=== PATIENT | male | born 1965 | race American Indian/Alaskan Native ===

== ENCOUNTER 2017-12-14 09:05 | Outpatient (CLI) | payer OTHER ==
--- NOTE | 2017-12-14 10:22 | XRay Report ---
ROUTINE CHEST, TWO VIEWS: HISTORY: Hypertension. The trachea, heart, mediastinal contour, lung clemons and bony thorax are unremarkable. IMPRESSION: Unremarkable chest x-ray.
--- NOTE | 2017-12-14 10:22 | XRay Report ---
LEFT SHOULDER: History: Pain. Routine views demonstrate normal bony and soft tissue structures with normal joint alignment of the shoulder. IMPRESSION: Left shoulder within normal limits.
== END 2017-12-14 09:06 | disposition home or self-care (01) ==
LOC: CARD 09:05
PROVIDERS: ATTEND Internal Medicine
DX: I10 Essential (primary) hypertension (principal); M25.512 Pain in left shoulder
CPT/HCPCS: 71046; 93005; 93010

== ENCOUNTER 2019-11-20 09:59 | Observation (INO) | payer BC ==
[2019-11-20 10:38] LABS: Hemoglobin 14.1 gm/dl (11.8-15.2); Mean Corpuscular HGB Conc 34 % (32-34); Mean Corpuscular Volume 85 fl (84-94); Platelet Count 239 K/mm3 (140-440); Red Blood Count 4.95 M/mm3 (3.65-5.03); Red Cell Distribution Width 13.1 % (13.2-15.2)
[2019-11-20 10:56] LABS: Alanine Aminotransferase 32 units/L (7-56); Albumin 4.3 g/dL (3.9-5); BUN/Creatinine Ratio 15; Blood Urea Nitrogen 15 mg/dL (9-20); Calcium 9.7 mg/dL (8.4-10.2); Hemolysis Index 12
[2019-11-20 11:34] LABS: Band Neutrophils # (Manual) 0.3 K/mm3; Basophils % (Manual) 0 % (0.0-1.8); Eosinophils % (Manual) 0 % (0.0-4.3); Total Cells Counted 100
[2019-11-20 11:35] LABS: Platelet Clumps Rare; Platelet Estimate Consistent w Auto; RBC Morphology Normal
[2019-11-20] MEDS ORDERED: SODIUM CHLORIDE 0.9% 1000 ML 1,000 ML IV ONE (11:43)
[2019-11-20] MEDS ORDERED: KETOROLAC 30 MG/1 ML INJ IV ONE (11:43)
[2019-11-20] MEDS ORDERED: MORPHINE 4 MG/1 ML INJ IV ONE (11:43)
[2019-11-20] MEDS ORDERED: ONDANSETRON 4 MG/2 ML INJ IV ONE (11:43)
--- NOTE | 2019-11-20 11:46 | Emergency Department Report ---
ED Abdominal Pain HPI - General Chief Complaint: Abdominal Pain Stated Complaint: ABD PAIN Time Seen by Provider: 11/20/19 11:39 Source: patient Mode of arrival: Wheelchair Limitations: No Limitations - History of Present Illness Initial Comments: 54-year male with past medical history hypertension no previous dental surgeries presents the hospital planing of right lower quadrant pain since 4:30 AM. Pain is sharp, cramping, intermittent rated 8-9/10 intensity. Pain is worse with palpation. Positive nausea with one episode of self-induced vomiting. Patient denies diarrhea, hematemesis, melena, hematochezia, dysuria, difficulty urinating, increased urinary frequency, or flank pain. - Related Data Allergies Allergy/AdvReac Type Severity Reaction Status Date / Time No Known Allergies Allergy Unverified 12/14/17 09:06 ED Review of Systems ROS: Stated complaint: ABD PAIN Other details as noted in HPI Comment: All other systems reviewed and negative ED Past Medical Hx - Past Medical History Previous Medical History?: Yes Hx Hypertension: Yes - Surgical History Past Surgical History?: No - Social History Smoking Status: Never Smoker Substance Use Type: None ED Physical Exam - General Limitations: No Limitations - Other Other exam information: General: No acute distress Head: Atraumatic Eyes: normal appearance ENT: Moist mucous membranes Neck: Normal appearance, no midline tenderness Chest: Clear to auscultation bilaterally CV: Regular rate and rhythm Abdomen: Soft, normal bowel sounds, right lower quadrant tenderness without rebound or guarding, nondistended, no rebound or guarding Back: Normal inspection Extremity: Normal inspection, full range of motion Neuro: Alert O x 3, no facial asymmetry, speech clear, no gross motor sensory deficit Psych: Appropriate behavior Skin: No rash ED Course Vital Signs 11/20/19 11/20/19 11/20/19 10:21 12:30 12:45 Temperature 100 F H Pulse Rate 89 87 88 Respiratory 16 32 H 29 H Rate Blood Pressure 152/104 137/83 137/83 O2 Sat by Pulse 96 93 93 Oximetry 11/20/19 13:00 Temperature Pulse Rate 97 H Respiratory 19 Rate Blood Pressure 136/88 O2 Sat by Pulse 95 Oximetry - Reevaluation(s) Reevaluation #1: 11/20/19 12:55 pt feeling better after pain meds. ED Medical Decision Making - Lab Data Result diagrams: 11/20/19 10:26 11/20/19 10:26 Lab Results 11/20/19 11/20/19 Range/Units 10:26 10:26 WBC 13.5 H (4.5-11.0) K/mm3 RBC 4.95 (3.65-5.03) M/mm3 Hgb 14.1 (11.8-15.2) gm/dl Hct 42.0 (35.5-45.6) % MCV 85 (84-94) fl MCH 29 (28-32) pg MCHC 34 (32-34) % RDW 13.1 L (13.2-15.2) % Plt Count 239 (140-440) K/mm3 Add Manual Diff Complete Total Counted 100 Seg Neutrophils % Finance Advisor Seg Neuts % (Manual) 87.0 H (40.0-70.0) % Band Neutrophils % 2.0 % Lymphocytes % (Manual) 7.0 L (13.4-35.0) % Reactive Lymphs % (Man) 0 % Monocytes % (Manual) 4.0 (0.0-7.3) % Eosinophils % (Manual) 0 (0.0-4.3) % Basophils % (Manual) 0 (0.0-1.8) % Metamyelocytes % 0 % Myelocytes % 0 % Promyelocytes % 0 % Blast Cells % 0 % Nucleated RBC % Not Reportable Seg Neutrophils # Man 11.7 H (1.8-7.7) K/mm3 Band Neutrophils # 0.3 K/mm3 Lymphocytes # (Manual) 0.9 L (1.2-5.4) K/mm3 Abs React Lymphs (Man) 0.0 K/mm3 Monocytes # (Manual) 0.5 (0.0-0.8) K/mm3 Eosinophils # (Manual) 0.0 (0.0-0.4) K/mm3 Basophils # (Manual) 0.0 (0.0-0.1) K/mm3 Metamyelocytes # 0.0 K/mm3 Myelocytes # 0.0 K/mm3 Promyelocytes # 0.0 K/mm3 Blast Cells # 0.0 K/mm3 WBC Morphology Not Reportable Hypersegmented Neuts Not Reportable Hyposegmented Neuts Not Reportable Hypogranular Neuts Not Reportable Smudge Cells Not Reportable Toxic Granulation Not Reportable Toxic Vacuolation Not Reportable Dohle Bodies Not Reportable Pelger-Huet Anomaly Not Reportable Leo Rods Not Reportable Platelet Estimate Consistent w auto Clumped Platelets Rare Plt Clumps, EDTA Not Reportable Large Platelets Not Reportable Giant Platelets Not Reportable Platelet Satelliting Not Reportable Plt Morphology Comment Not Reportable RBC Morphology Normal Dimorphic RBCs Not Reportable Polychromasia Not Reportable Hypochromasia Not Reportable Poikilocytosis Not Reportable Anisocytosis Not Reportable Microcytosis Not Reportable Macrocytosis Not Reportable Spherocytes Not Reportable Pappenheimer Bodies Not Reportable Sickle Cells Not Reportable Target Cells Not Reportable Tear Drop Cells Not Reportable Ovalocytes Not Reportable Helmet Cells Not Reportable [place] Bodies Not Reportable [place] Rings Not Reportable Gridley Cells Not Reportable Bite Cells Not Reportable Crenated Cell Not Reportable Elliptocytes Not Reportable Acanthocytes (Spur) Not Reportable Rouleaux Not Reportable Hemoglobin C Crystals Not Reportable Schistocytes Not Reportable Malaria parasites Not Reportable Yohannes Bodies Not Reportable Hem Pathologist Commnt No Sodium 138 (137-145) mmol/L Potassium 3.5 L (3.6-5.0) mmol/L Chloride 98.0 (98-107) mmol/L Carbon Dioxide 24 (22-30) mmol/L Anion Gap 20 mmol/L BUN 15 (9-20) mg/dL Creatinine 1.0 (0.8-1.3) mg/dL Estimated GFR > 60 ml/min BUN/Creatinine Ratio 15 % Glucose 141 H (75-100) mg/dL Calcium 9.7 (8.4-10.2) mg/dL Total Bilirubin 0.40 (0.1-1.2) mg/dL AST 23 (5-40) units/L ALT 32 (7-56) units/L Alkaline Phosphatase 70 (35-129) units/L Total Protein 8.8 H (6.3-8.2) g/dL Albumin 4.3 (3.9-5) g/dL Albumin/Globulin Ratio 1.0 % - Radiology Data Radiology results: report reviewed CT ABDOMEN AND PELVIS WITH IV CONTRAST INDICATION: Right lower quadrant pain, low-grade fever. COMPARISON: None available. TECHNIQUE: All CT scans at this facility use dose modulation, automated exposure control, iterative reconstruction or weight based dosing, when appropriate, to reduce radiation dose to as low as reasonably achievable. FINDINGS: Lung Bases: No significant abnormality. Skeletal System: No acute abnormality. ABDOMEN: Liver: In addition to several small cysts, there is focal fat deposition in the anterior left hepatic lobe. Gallbladder: No significant abnormality. Bile Ducts: No significant abnormality. Pancreas: No significant abnormality. Spleen: No significant abnormality. Adrenals: No significant abnormality. Right Kidney: No significant abnormality. Left Kidney: No significant abnormality. Upper GI tract: No significant abnormality. Lymph Nodes: No significant adenopathy. Aorta: No significant abnormality. Additional Findings: No significant abnormality. PELVIS: Colon: No acute abnormality. Urinary Bladder and Distal Ureters: No significant abnormality. Appendix: No significant abnormality. Lymph Nodes: No significant adenopathy. Additional Findings: There is mild inflammation within the distal ileum in the right lower quadrant. Focal fluid is seen in the anterior right lower quadrant adjacent to inflamed distal small bowel (as seen on series 2 axial image 152). No abscess is seen. There is trace free fluid in the low midline pelvis. IMPRESSION: 1. Distal ileitis with minimal adjacent free fluid in the pelvis. No abscess. 2. The appendix is within normal limits. - Medical Decision Making Patient presents to the hospital right lower quadrant pain, low-grade fever, nausea, and decreased p.o. intake. Labs reveal leukocytosis. CT reveals ileitis with a focal fluid collection but negative for abscess. Patient treated with normal saline, morphine, Zofran, Toradol, and Zosyn. Case discussed with the hospitalist for admission. ua neg for infection but high specific gravity to suggest dehydration Critical Care Time: No Critical care attestation.: If time is entered above; I have spent that time in minutes in the direct care of this critically ill patient, excluding procedure time. ED Disposition Clinical Impression: Ileitis, Abdominal fluid collection Disposition: OP ADMIT IP TO THIS HOSP Is pt being admited?: Yes Condition: Stable Time of Disposition: 12:52 (Dr Gordon/hosp)
--- NOTE | 2019-11-20 12:46 | Cat Scan Report ---
CT ABDOMEN AND PELVIS WITH IV CONTRAST INDICATION: Right lower quadrant pain, low-grade fever. COMPARISON: None available. TECHNIQUE: All CT scans at this facility use dose modulation, automated exposure control, iterative reconstructi on or weight based dosing, when appropriate, to reduce radiation dose to as low as reasonably achieva ble. FINDINGS: Lung Bases: No significant abnormality. Skeletal System: No acute abnormality. ABDOMEN: Liver: In addition to several small cysts, there is focal fat deposition in the anterior left hepatic lobe. Gallbladder: No significant abnormality. Bile Ducts: No significant abnormality. Pancreas: No significant abnormality. Spleen: No significant abnormality. Adrenals: No significant abnormality. Right Kidney: No significant abnormality. Left Kidney: No significant abnormality. Upper GI tract: No significant abnormality. Lymph Nodes: No significant adenopathy. Aorta: No significant abnormality. Additional Findings: No significant abnormality. PELVIS: Colon: No acute abnormality. Urinary Bladder and Distal Ureters: No significant abnormality. Appendix: No significant abnormality. Lymph Nodes: No significant adenopathy. Additional Findings: There is mild inflammation within the distal ileum in the right lower quadrant. Focal fluid is seen in the anterior right lower quadrant adjacent to inflamed distal small bowel (as seen on series 2 axial image 152). No abscess is seen. There is trace free fluid in the low midline p stevenson. IMPRESSION: 1. Distal ileitis with minimal adjacent free fluid in the pelvis. No abscess. 2. The appendix is within normal limits. Signer Name: Forest Santacruz MD Signed: 11/20/2019 12:41 PM Workstation Name: [id number]
[2019-11-20] MEDS ORDERED: PIPERACIL/TAZOBACTA 4.5/NS 100 4.5 GM/100 ML VIAL IV ONE (12:49)
--- NOTE | 2019-11-20 12:53 | History and Physical Report ---
History of Present Illness Chief complaint: My stomach hurts History of present illness: 54 YO Male with HTN presents to ED for evaluation. Patient states that he has experienced right-sided abdominal pain over the past 1 day. Patient states that he was awakened at approximately 0430 hrs. with worsening onset of abdominal pain. Patient states that pain is 89/10 in intensity, sharp, initially intermittent at onset but has become constant over the past 4 hours, cramping in nature, worsened with movement, relieved with nonmovement, associated with nausea. Patient acknowledges inability to tolerate. Patient transported to [facility] for further care and evaluation of the aforementioned symptoms. Patient seen and evaluated in the emergency department. Lab and imaging studies reviewed. Patient underwent CT scan of the abdomen and pelvis which revealed evidence of ileitis which is consistent with inflammatory bowel disease. Patient also found to have concomitant systemic inflammatory response syndrome, intractable nausea and vomiting. Patient placed in observation status and admitted to medical floor. Patient initiated on IV antibiotic therapy, antiemetic therapy, and IV fluid resuscitation therapy. Patient denies fever, chills, chest pain, palpitations, hematemesis, melena, hematochezia, dysuria, difficulty urinating, increased urinary frequency, ingestion of food/water from new or different sour marvin, or flank pain. Patient knowledges family history of inflammatory bowel disease. No prior admission for review. No medication listed at time of admission for reconciliation. Past History Past Medical History: hypertension, other (See HPI) Past Surgical History: No surgical history, Other (Reviewed) Social history: , lives with family. denies: smoking, alcohol abuse, prescription drug abuse Family history: hypertension Medications and Allergies Allergies Allergy/AdvReac Type Severity Reaction Status Date / Time No Known Allergies Allergy Unverified 12/14/17 09:06 Active Meds: Active Medications Piperacillin Sod/Tazobactam Sod (Zosyn/Ns 4.5gm/100ml) 4.5 gm in 100 mls @ 200 mls/hr IV ONCE ONE; Protocol Stop: 11/20/19 13:18 Review of Systems Constitutional: no weight loss, no weight gain, no fever, no chills Ears, nose, mouth and throat: no ear pain, no ear discharge, no tinnitis, no decreased hearing, no nose pain Cardiovascular: no chest pain, no orthopnea, no rapid/irregular heart beat, no edema Respiratory: no cough, no cough with sputum Gastrointestinal: abdominal pain, nausea, vomiting, no constipation, no change in bowel habits, no BRBPR, no melena, no hematochezia, no loss of appetite Genitourinary Male: no hematuria, no flank pain, no discharge, no urinary frequency, no urinary hesitancy Rectal: no pain, no incontinence, no bleeding Musculoskeletal: no neck stiffness, no neck pain, no shooting arm pain, no low back pain, no shooting leg pain, no leg numbness/tingling Integumentary: no rash, no pruritis, no redness, no sores, no wounds Neurological: no head injury, no transient paralysis, no paralysis, no weakness, no seizures Psychiatric: no anxiety, no memory loss, no insomnia, no hypersomnia, no change in libido, no disorientation Endocrine: no cold intolerance, no heat intolerance, no polyphagia, no excessive thirst, no polyuria Hematologic/Lymphatic: no easy bruising, no easy bleeding Allergic/Immunologic: no allergic rhinitis, no wheezing, no persistent infections, no anaphylaxis Exam - Constitutional Vitals: Temp Pulse Resp BP Pulse Ox 100 F H 87 32 H 137/83 93 11/20/19 10:21 11/20/19 12:30 11/20/19 12:30 11/20/19 12:30 11/20/19 12:30 General appearance: Present: mild distress - EENT Eyes: Present: PERRL ENT: hearing intact, clear oral mucosa - Neck Neck: Present: supple, normal ROM - Respiratory Respiratory effort: normal Respiratory: bilateral: CTA - Cardiovascular Heart Sounds: Present: S1 & S2. Absent: rub, click - Extremities Extremities: pulses symmetrical, No edema Peripheral Pulses: within normal limits - Abdominal General gastrointestinal: Present: soft, non-tender, tender, non-distended, normal bowel sounds Localized gastrointestinal: tender: RLQ Male genitourinary: Present: normal - Integumentary Integumentary: Present: clear, warm, dry - Musculoskeletal Musculoskeletal: gait normal, strength equal bilaterally - Psychiatric Psychiatric: appropriate mood/affect, intact judgment & insight - Neurologic Neurologic: CNII-XII intact, moves all extremities Results - Labs CBC & Chem 7: 11/20/19 10:26 11/20/19 10:26 Labs: Abnormal lab results 11/20/19 11/20/19 Range/Units 10:26 10:26 WBC 13.5 H (4.5-11.0) K/mm3 RDW 13.1 L (13.2-15.2) % Seg Neuts % (Manual) 87.0 H (40.0-70.0) % Lymphocytes % (Manual) 7.0 L (13.4-35.0) % Seg Neutrophils # Man 11.7 H (1.8-7.7) K/mm3 Lymphocytes # (Manual) 0.9 L (1.2-5.4) K/mm3 Potassium 3.5 L (3.6-5.0) mmol/L Glucose 141 H (75-100) mg/dL Total Protein 8.8 H (6.3-8.2) g/dL Assessment and Plan - Patient Problems (1) Inflammatory bowel disease Current Visit: Yes Status: Acute Plan to address problem: Bowel rest, CT scan abdomen and pelvis, IV fluid resuscitation therapy, antiemetic therapy, serial abdominal exam. Outpatient GI follow-up. (2) Systemic inflammatory response syndrome Current Visit: Yes Status: Acute Plan to address problem: CBC, CMP, chest x-ray, CT scan abdomen and pelvis, IV antibiotic therapy, (3) Intractable nausea and vomiting Current Visit: Yes Status: Acute Plan to address problem: Antiemetic therapy, IV fluid resuscitation therapy, supportive care. (4) Ileitis Current Visit: No Status: Acute Plan to address problem: CT scan abdomen and pelvis, serial physical exam. IV antibiotic therapy, IV steroid therapy, supportive care. Outpatient GI follow-up for endoscopy. (5) DVT prophylaxis Current Visit: Yes Status: Acute Plan to address problem: SCD to bilateral lower extremities while in bed, patient is ambulatory.
[2019-11-20] MEDS ORDERED: ACETAMINOPHEN 325 MG TAB PO PRN (12:57)
[2019-11-20] MEDS ORDERED: ONDANSETRON 4 MG/2 ML INJ IV PRN (12:57)
[2019-11-20 13:35] LABS: Bilirubin,Urine NEG (Negative); Blood,Urine NEG (Negative); Color,Urine Yellow (Yellow); Mucus,Urine FEW /HPF; Protein,Urine <15 mg/dL mg/dL (Negative); Urobilinogen,Urine < 2.0 mg/dL (<2.0); WBC,Urine < 1.0 /HPF (0.0-6.0)
[2019-11-20] MEDS: methylPREDNISolone Sod Succinate 40 MG/1 ML INJ IV SCH (13:56)
[2019-11-20] MEDS ORDERED: metroNIDAZOLE/NS 500 MG/100 ML 500 MG/100 ML BAG IV ONE (15:42)
[2019-11-20] MEDS: metroNIDAZOLE/NS 500 MG/100 ML 500 MG/100 ML BAG IV SCH ×2 (15:47→21:32)
[2019-11-20] MEDS: SODIUM CHLORIDE 0.9% 1000 ML 1,000 ML IV SCH (16:00)
[2019-11-20] MEDS ORDERED: MORPHINE 2 MG/1 ML INJ IV PRN (22:10)
[2019-11-21] MEDS: methylPREDNISolone Sod Succinate 40 MG/1 ML INJ IV SCH ×2 (00:21→14:47)
[2019-11-21] MEDS: SODIUM CHLORIDE 0.9% 1000 ML 1,000 ML IV SCH (05:13)
[2019-11-21] MEDS: metroNIDAZOLE/NS 500 MG/100 ML 500 MG/100 ML BAG IV SCH ×2 (05:13→15:48)
[2019-11-21 07:20] LABS: Hematocrit 39.7 % (35.5-45.6); Hemoglobin 13.2 gm/dl (11.8-15.2); Mean Corpuscular HGB Conc 33 % (32-34); Mean Corpuscular Volume 87 fl (84-94); Platelet Count 215 K/mm3 (140-440); Red Blood Count 4.59 M/mm3 (3.65-5.03); Red Cell Distribution Width 13.5 % (13.2-15.2)
[2019-11-21 07:36] LABS: BUN/Creatinine Ratio 19; Blood Urea Nitrogen 26 mg/dL (9-20); Calcium 9.4 mg/dL (8.4-10.2); Hemolysis Index 19
[2019-11-21 08:37] LABS: Basophils % (Manual) 0 % (0.0-1.8); Eosinophils % (Manual) 0 % (0.0-4.3); Platelet Estimate Consistent w Auto; RBC Morphology Normal; Total Cells Counted 100
[2019-11-21 14:09] VITALS: BP 167/100
--- NOTE | 2019-11-21 15:45 | Discharge Summary ---
Providers - Providers Date of Admission: 11/20/19 13:42 Attending physician: ADELA CONNELLY Primary care physician: [facility] MD JOHN Hospitalization Condition: Stable - Discharge Diagnoses (1) Inflammatory bowel disease Status: Acute (2) Systemic inflammatory response syndrome Status: Acute (3) Intractable nausea and vomiting Status: Acute (4) Ileitis Status: Inactive (5) DVT prophylaxis Status: Acute Exam - Constitutional Vitals: Temp Pulse Resp BP Pulse Ox 97.9 F 71 18 167/100 97 11/21/19 14:08 11/21/19 14:08 11/21/19 14:08 11/21/19 14:08 11/21/19 14:08 Plan Follow up with: KAILEE INGRAM MD [Primary Care Provider] - 7 Days Prescriptions: metroNIDAZOLE [Flagyl] 500 mg PO Q8HR #18 tablet oxyCODONE /ACETAMINOPHEN [Percocet 5/325] 1 tab PO Q6HR PRN #24 tablet PRN Reason: Pain Prednisone [predniSONE 10 mg (6-Day Pack, 21 Tabs)] 10 mg PO .TAPER #1 tab.ds.pk
== END 2019-11-21 17:30 | disposition home or self-care (01) ==
LOC: ED 09:59 → 3A 13:42 → 3B-SURG 14:40
PROVIDERS: ADMIT Internal Medicine; ATTEND Internal Medicine
DX: K52.9 Noninfective gastroenteritis and colitis, unspecified (principal); R65.10 Systemic inflammatory response syndrome (SIRS) of non-infectious origin without acute organ dysfunction; I10 Essential (primary) hypertension
CPT/HCPCS: 36415; 74177; 80048; 80053; 81001; 85007; 85025; 96361; 96365; 96366; 96367; 96368; 96375; 96376; 99285; G0378; J1885; J1956; J2270; J2405; J2543; J2920; J7030; Q9967